=== PATIENT | male | born 1995 | race Caucasian/White ===

== ENCOUNTER 2018-04-14 15:30 | Emergency (ER) | payer MEDICAID ==
[~2018-04-14] VITALS: Ht 185.4 cm; Wt 56.7 kg
[2018-04-14 15:37] VITALS: BP 125/83
--- NOTE | 2018-04-14 15:43 | NUR ---
PT AMB TO LOBBY. VSS.
[2018-04-14] MEDS ORDERED: DIPHENOXYLATE /ATROPINE 2.5 MG TAB ONE (16:44)
== END 2018-04-14 16:51 | disposition home or self-care (01) ==
LOC: MED 15:30
DX: R19.7 Diarrhea, unspecified (principal); R11.10 Vomiting, unspecified
CPT/HCPCS: 99283